=== PATIENT | female | born 1945 | race Caucasian/White ===

== ENCOUNTER → 2018-10-01 | Day surgery (SDC) | payer MEDICARE, OTHER ==
[2018-09-24 18:05] LABS: BASOPHILS # (AUTO) 0.1 (0.0-0.1); BASOPHILS % 0.4 % (0.0-1.0); EOSINOPHILS # (AUTO) 0.2 (0.0-0.4); EOSINOPHILS % 1.5 % (0.0-6.0); HEMATOCRIT 44.6 % (34.2-44.1); HEMOGLOBIN 14.4 g/dL (12.0-16.0); LYMPHOCYTES % 26.2 % (18.0-39.1); MEAN CORPUSCULAR HEMOGLOBIN 29.8 pg (28-32); MEAN CORPUSCULAR HGB CONC 32.3 g/dL (31-35); MEAN CORPUSCULAR VOLUME 92.1 fL (81-99); MONOCYTES # (AUTO) 1.1 (0.2-0.8); MONOCYTES % 9.4 % (4.4-11.3); NEUTROPHILS # (AUTO) 7.1 (2.1-6.9); NEUTROPHILS % 62.1 % (38.7-80.0); PLATELET COUNT 233 x10e3/uL (140-360); RED BLOOD COUNT 4.84 x10e6/uL (3.6-5.1); RED CELL DISTRIBUTION WIDTH 14.4 % (11.7-14.4)
[2018-09-24 18:21] LABS: ANION GAP 13.6 mmol/L (8-16); BLOOD UREA NITROGEN 14 mg/dL (7-26); BUN/CREATININE RATIO 18 (6-25); CALCIUM 10.6 mg/dL (8.4-10.2); CARBON DIOXIDE 33 mmol/L (22-29); CHLORIDE 97 mmol/L (98-107); CREATININE, SERUM 0.79 mg/dL (0.57-1.11); EST GLOMERULAR FILTRATION RATE > 60 ML/MIN (60-); GLUCOSE 79 mg/dL (74-118); POTASSIUM 4.6 mmol/L (3.5-5.1); SODIUM 139 mmol/L (136-145)
[~2018-10-01] MED LIST: ASPIRIN81 MG PO; ATENOLOL50 MG PO; BALANCED SALT SOLN (OPTH) 15 ML BTL IO ONE; BUPIVACAINE HC 0.75% PF 10ML VIAL INJ ONE; CALCIUM PO; CHONDR SU A NA/HYALUR SOD 1 EACH KIT IO ONE; CO Q-1010 MG PO; CYCLOPENTOLATE HCL 2% OPTH SOLN 2 ML BTL OP ONE; EPINEPHRINE HCL 1:1000 1ML 1 MG/ML AMP ONE; FAMOTIDINE20 MG PO; FENTANYL CITRATE/PF 100MCG/2 ML INJ ONE; GATIFLOXACIN(OPTH) 5 ML LIQD ONE; GLYCOPYRROLATE INJ 1MG/ 5 ML SYR ONE; LIDOCAINE 2% /EPINEPHRINE 20 ML SDV INJ ONE; LIDOCAINE HCL-PF 4% 40 MG/1 ML 5ML AMP ONE; LISINOPRIL-HCT1 EAC1 PO; MIDAZOLAM HCL 2 MG/2 ML VIAL ONE; PHENYLEPHRINE HCL 2 ML DROPS ONE; PILOCARPINE HCL(OPTH) 15 ML LIQD ONE; POVIDONE IODINE 5% (OPTH) 30 ML BTL ONE; SILVER CENTRUM PO; SIMVASTATIN20 MG PO; TOBRAMYCIN/DEXAMETHASONE(OPTH) 3.5 GM TUBE ONE; [UNRECOGNIZED DRUG - OTHER] PO
--- OUTSIDE RECORDS SUMMARY | 2018-10-01 05:27 | XMS REPORT | Clinical Summary ---
Author Author [facility] Address Unknown Phone Unavailable Care Team Providers Care Services Mgr Name Role Phone Asked, No Pcp PCP Unavailable Allergies Comments Active Allergy Reactions Severity Noted Date allegic for sulfur Other Medium 06/06/2016 Sulfadiazine 06/06/2016 Medications End Date Status Medication Sig Dispensed Refills Start Date Active lisinopril-hydrochlorothi Take 1 tablet 0 azide by mouth (PRINZIDE,ZESTORETIC) daily. 20-25 mg per tablet Active simvastatin (ZOCOR) 40 MG Take 40 mg by 0 tablet mouth daily. Active atenolol (TENORMIN) 25 MG Take 25 mg by 0 tablet mouth daily. Active aspirin (ECOTRIN) 81 MG Take 81 mg by 0 enteric coated tablet mouth daily. Active famotidine (PEPCID) 20 MG Take 20 mg by 0 tablet mouth 2 (two) times a day. Active coenzyme Q10 200 mg Take 200 mg 0 capsule by mouth daily. Active cholecalciferol, vitamin Take 1,000 0 D3, (VITAMIN D3) 1,000 Units by unit tablet mouth daily. Active CALCIUM CARBONATE Take 1,000 mg 0 (CALCIUM 500 ORAL) by mouth daily. Active qbxea-2l-vqc-epa-fish oil Take 1 0 1,000-1,400 mg capsule by capsule,delayed mouth daily. release(DR/EC) Active FOLIC Take 1 tablet 0 ACID/MULTIVIT-MIN/LUTEIN by mouth (CENTRUM SILVER ORAL) daily. Active Problems Not on file Family History Medical History Relation Name Comments Cancer Father Lung cancer Mother Leukemia Sister Relation Name Status Comments Father Mother Sister Social History Date Tobacco Use Types Packs/Day Years Used Never Smoker Alcohol Use Drinks/Week oz/Week Comments Yes 1 Glasses of 0.6 to 2 3 times a week wine Sex Assigned at Date Recorded Not on file Industry Job Start Date Occupation Not on file Not on file Not on file Travel End Travel History Travel Start No recent travel history available. Last Filed Vital Signs Not on file Plan of Treatment Not on file Results Not on fileafter 09/30/2017 Insurance Type Payer Benefit Subscriber ID Effective Phone Address Plan / Dates Group Medicare MEDICARE MEDICARE xxxxxxxxxx 2011- [place], PART A AND Present [place] [employer] COMMERCIAL MISC MISC xxxxxxxxx [id number] COMMERCIAL resent Advance Directives Patient has advance care planning documents on file. For more information, otf berry contact: Pranay Ward [address] [place] [address]
--- OUTSIDE RECORDS SUMMARY | 2018-10-01 05:28 | XMS REPORT ---
Author Author [facility] Address Unknown Phone Unavailable Care Team Providers Care Radiology Physician Assistant Name Role Phone Unavailable Unavailable Payers Payer Name Policy Type Policy Number Effective Date Expiration Date Problems This patient has no known problems. Allergies, Adverse Reactions, Alerts Allergy Name Allergy Type Status Severity Reaction(s) Onset Date Inactive Date Treating Clinician Comments Sulfa (Sulfonamide Antibiotics) DA Active [place] 2018-08-28 00:00:00 Sulfa (Sulfonamide Antibiotics) DA Active [place] 2017-09-22 00:00:00 Medications This patient has no known medications. Results Test Description Test Time Test Comments Text Results Atomic Results Result Comments - XR FLUORO NDL 2018-09-01 14:04:00 Patient Name: ESHA VIGIL Unit No: [id number] EXAMS: CPT CODE: [id number] XR FLUORO NDL 06208 FLUOROSCOPICALLY GUIDED left hip INTRA-ARTICULAR STEROID AND MARCAINE INJECTION COMMENT: After informed consent was obtained a 25-gauge needle is inserted into the left hip joint under fluoroscopic control using sterile technique. 1 mL of Isovue-300 is instilled into the joint. This is followed by injection of 2 mL of Kenalog 40 mg/mL and 4mL of Marcaine. The patient tolerated the procedure well. 0.5 minutes of fluoroscopy time was used on this exam. at 1404 Reported and signed by: Demetris Roper MD CC: Krystina Albright MD; Clem Felder MD Technologist: RT Cheryl.(R) Transcribed D/ (1407) AylinGVG [facility] NAME: ESHA VIGIL [address] [facility] PHYS: SENDYEMILY - Krystina Albright : 1945 AGE: 73 SEX: F [place] [address] LOC: Y.RAD PHONE #: [phone] EXAM DATE: 08/28/2018 STATUS: DEP CLI FAX #: [phone] RAD #: D/C DT PAGE 1 Signed Report Patient Name: ESHA VIGIL Unit No: [id number] EXAMS: CPT CODE: [id number] XR FLUORO NDL 28301 <Continued> Orig Print D/T: S: 09/01/2018 ([id number]) [facility] NAME: ESHA VIGIL [address] [facility] PHYS: GOEMILY - Krystina Albright : 1945 AGE: 73 SEX: F [place] [address] LOC: Y.RAD PHONE #: [phone] EXAM DATE: 08/28/2018 STATUS: DEP CLI FAX #: [phone] RAD #: D/C DT PAGE 2 Signed Report
--- OUTSIDE RECORDS SUMMARY | 2018-10-01 05:28 | XMS REPORT | Encounter Summary ---
Author Organization Unknown Address [address] [place] [address] Phone [phone] Care Team Providers Care Obgyn Hospitalist Physician Name Role Phone Dr. Stanley Forbes 3 [phone] Clem LUJAN MD 82 [phone] Osbaldo Gonzalez MD 107 [phone] Herminio Diaz MD 111 [phone] Reason for Visit sore throat; cough / congestion Instructions 1. Hypertensive disorder 2. Acute exacerbation of asthma dexamethasone 4 mg/mL injection solution triamcinolone acetonide 40 mg/mL suspension for injection Ventolin HFA 90 mcg/actuation aerosol inhaler azithromycin 250 mg tablet 3. Seasonal allergic rhinitis fluticasone propionate 50 mcg/actuation nasal spray,suspension loratadine 10 mg tablet Singulair 10 mg tablet Discussion Note f/u in 1-2 mth swith pcp , due to vaccines & labs Patient educational handouts: No information available. Plan of Care Reminders Provider Appointments None recorded. Lab None recorded. Referral None recorded. Procedures None recorded. Surgeries None recorded. Imaging None recorded. Medications Name Start Date atenolol 25 mg tablet Take 1 tablet every day by oral route for 90 days. azithromycin 250 mg tablet TAKE 2 TABLETS (500 MG) BY ORAL ROUTE ONCE DAILY FOR 1 DAY THEN 1 TABLET (250 MG) BY ORAL ROUTE ONCE DAILY FOR 4 DAYS Calcium 500 take one tablet by mouth once a day Co Q-10 200 mg capsule Take 1 capsule every day by oral route. dexamethasone 4 mg/mL injection solution Take 4 mg by injection route for 1 day. famotidine 20 mg tablet Take 1 tablet every day by oral route for 30 days. fluticasone propionate 50 mcg/actuation nasal spray,suspension Staples 1 spray twice a day by intranasal route for 90 days. lisinopril 20 mg-hydrochlorothiazide 25 mg tablet Take 1 tablet every day by oral route for 90 days. loratadine 10 mg tablet Take 1 tablet every day by oral route for 90 days. Lumigan 0.01 % eye drops Apply 1 drop every day by ophthalmic route as directed for 30 days. SB Low Dose ASA EC 81 mg tablet,delayed release Take 1 tablet every day by oral route. simvastatin 40 mg tablet Take 1 tablet every day by oral route for 90 days. Singulair 10 mg tablet Take 1 tablet every day by oral route in the evening for 90 days. triamcinolone acetonide 40 mg/mL suspension for injection Take 40 mg by injection route for 1 day. Vascepa 1 gram capsule Take 2 capsules twice a day by oral route for 90 days. Ventolin HFA 90 mcg/actuation aerosol inhaler Inhale 2 puffs 3 times a day by inhalation route as needed for 30 days. Vitamin D3 1,000 unit tablet Take 1 tablet every day by oral route. Medications Administered Name Date dexamethasone 4 mg/mL injection solution Take 4 mg by injection route for 1 day. [id number]:57:00 triamcinolone acetonide 40 mg/mL suspension for injection Take 40 mg by injection route for 1 day. [id number]:58:00 Vitals Height Weight BMI Blood Pressure 5 ft 6 in 154 lbs 24.9 kg/m2 128/82 mm[Hg] Lab Results None recorded. 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 Social History Smoking Status Never Smoker Past Encounters 05/20/2018 Hypertensive Disorder; Acute Exacerbation of Asthma; Seasonal Allergic Rhinitis Adwoa Reed MD: [address] [place] [address], Ph. History of Present Illness Note:Here ebcause she has a wheeze , starte dwith cough & burning when she coughs in her chest , blowing her nose & it fills right back up ., low garde fever yesterday & 100.2 today . took 2 tylenols this am,, h/o seasonal allergies - no meds taken . took zyrtec 1 week ago . Review of Systems:ROS as noted in the HPI Review of Systems None recorded. Physical Exam General Adult Exam (Female) Reported By: Patient Constitutional: General Appearance: well-developed; BMI - 24.9. Level of Distress: mild distress. Ambulation: ambulating normally Psychiatric: Mental Status: active and alert, normal mood, normal affect. Orientation: to time, to place, to person Head: Head: normocephalic, atraumatic Eyes: Lids and Conjunctivae: non-injected, no discharge, no pallor; ALLERgic shiners under both eyes. Pupils: PERRLA. Corneas: grossly intact. EOM: EOMI. Lens: clear. Sclerae: non-icteric ENMT: Ears: no lesions on external ear, EACs clear, TM bulging. Hearing: no hearing loss. Nose: no lesions on external nose, nares patent, no septal deviation, nasal passages clear, no sinus tenderness, no nasal discharge. Lips, Teeth, and Gums: no mouth or lip ulcers, no bleeding gums, normal dentition. Oropharynx: moist mucous membranes, no erythema, no exudates, tonsils not enlarged; cobblestone pattern in posterior pharygeal wall Neck: Neck: supple, trachea midline, no masses, FROM. Lymph Nodes: no cervical LAD, no supraclavicular LAD, no axillary LAD. Thyroid: no enlargement, non- tender, no nodules Lungs: Respiratory effort: no dyspnea. Auscultation: breath sounds normal, good air movement, CTA except as noted, no wheezing, no rales/crackles, no rhonchi Cardiovascular: Heart Auscultation: RRR, normal S1, normal S2, no murmurs, no rubs, no gallops Abdomen: Bowel Sounds: normal. Inspection and Palpation: soft, non-distended, no tenderness, no guarding, no rebound tenderness, no masses, no CVA tenderness. Liver: non-tender, no hepatomegaly Musculoskeletal:: Motor Strength and Tone: normal motor strength, normal tone. Joints, Bones, and Muscles: normal movement of all extremities, no bony abnormalities, no contractures, no malalignment, no tenderness. Extremities: no cyanosis, no edema, no varicosities Neurologic: Gait and Station: normal gait, normal station. Cranial Nerves: grossly intact. Sensation: grossly intact Skin: Inspection and palpation: no rash, no lesions, no abnormal nevi, good turgor, no jaundice. Nails: normal Back: Thoracolumbar Appearance: normal curvature
--- OUTSIDE RECORDS SUMMARY | 2018-10-01 05:28 | XMS REPORT | Encounter Summary ---
Author Organization Unknown Address [address] [place] [address] Phone [phone] Care Team Providers Care Desk Attendant Name Role Phone Dr. Stanley Forbes 3 [phone] Clem LUJAN MD 82 [phone] Osbaldo Gonzalez MD 107 [phone] Herminio Diaz MD 111 [phone] Reason for Visit cough / congestion Instructions 1. Acute sinusitis ceftriaxone 1 gram solution for injection Levaquin 500 mg tablet Cheratussin AC 10 mg-100 mg/5 mL oral liquid 2. Exacerbation of asthma Medrol (Deepak) 4 mg tablets in a dose pack 3. Immunization refused 4. Body mass index 20-24 - normal Discussion Note: None recorded. Patient educational handouts: No information available. Plan of Care Reminders Provider Appointments None recorded. Lab None recorded. Referral None recorded. Procedures None recorded. Surgeries None recorded. Imaging None recorded. Medications Name Start Date atenolol 25 mg tablet Take 1 tablet every day by oral route for 90 days. Calcium 500 take one tablet by mouth once a day ceftriaxone 1 gram solution for injection Take 1 g by injection route. Cheratussin AC 10 mg-100 mg/5 mL oral liquid Take 10 mL every 6-8 hours by oral route as needed for 5 days. Co Q-10 200 mg capsule Take 1 capsule every day by oral route. famotidine 20 mg tablet Take 1 tablet every day by oral route for 30 days. fluticasone propionate 50 mcg/actuation nasal spray,suspension Hudson 1 spray twice a day by intranasal route for 90 days. Levaquin 500 mg tablet Take 1 tablet every 24 hours by oral route as directed for 7 days. lisinopril 20 mg-hydrochlorothiazide 25 mg tablet Take 1 tablet every day by oral route for 90 days. Lumigan 0.01 % eye drops Apply 1 drop every day by ophthalmic route as directed for 30 days. Medrol (Deepak) 4 mg tablets in a dose pack as directed montelukast 10 mg tablet Take 1 tablet every day by oral route in the evening for 90 days. SB Low Dose ASA EC 81 mg tablet,delayed release Take 1 tablet every day by oral route. simvastatin 40 mg tablet Take 1 tablet every day by oral route for 90 days. Vascepa 1 gram capsule Take 2 capsules twice a day by oral route for 90 days. Ventolin HFA 90 mcg/actuation aerosol inhaler Inhale 2 puffs 3 times a day by inhalation route as needed for 30 days. Vitamin D3 1,000 unit tablet Take 1 tablet every day by oral route. Medications Administered Name Date ceftriaxone 1 gram solution for injection Take 1 g by injection route. [id number]:05:00 Vitals Height Weight BMI Blood Pressure 5 ft 6 in 151 lbs 24.4 kg/m2 130/80 mm[Hg] Lab Results None recorded. Allergies Code [...] History Smoking Status Never Smoker Past Encounters 05/28/2018 Acute Sinusitis; Exacerbation of Asthma; Immunization Refused; Body Mass Index 20-24 - Normal Stanley Chandra MD: [address] [place] [address], Ph. 05/20/2018 Hypertensive Disorder; Acute Exacerbation of Asthma; Seasonal Allergic Rhinitis Adwoa Reed MD: [address] [place] [address], Ph. History of Present Illness Note:F/u on asthma exacerbation and allergic rhinitis. Pt completed a zpak. However, she is still complaining of productive cough, runny nose and nasal congestion. Denies sob, wheezing or chest pain. Review of Systems:ROS as noted in the HPI Review of Systems None recorded. Physical Exam General Adult Exam (male) Reported By: Patient Constitutional: General Appearance: healthy-appearing. Level of Distress: NAD Psychiatric: Insight: good judgement. Mental Status: active and alert, normal mood, normal affect. Orientation: to time, to place, to person. Memory: recent memory normal, remote memory normal Eyes: Lids and Conjunctivae: non-injected, no discharge. EOM: EOMI ENMT: Ears: TMs clear. Nose: nares non-patent, sinus tenderness, nasal discharge, post nasal drip. Lips, Teeth, and Gums: no mouth or lip ulcers. Oropharynx: moist mucous membranes, no exudates, tonsils not enlarged, erythema Neck: Neck: supple, trachea midline. Lymph Nodes: cervical LAD Lungs: Auscultation: breath sounds normal Cardiovascular: Heart Auscultation: RRR, normal S1, normal S2, no murmurs Neurologic: Gait and Station: normal gait
[2018-10-01 08:15] VITALS: BP 146/80
== END | disposition home or self-care (01) ==
LOC: OR 05:00
PROVIDERS: ATTEND Ophthalmology
DX: H25.11 Age-related nuclear cataract, right eye (principal); I10 Essential (primary) hypertension; J45.909 Unspecified asthma, uncomplicated; I25.810 Atherosclerosis of coronary artery bypass graft(s) without angina pectoris; R00.1 Bradycardia, unspecified; Z88.2 Allergy status to sulfonamides; Z01.810 Encounter for preprocedural cardiovascular examination; Z01.812 Encounter for preprocedural laboratory examination; Z79.82 Long term (current) use of aspirin; Z95.1 Presence of aortocoronary bypass graft
CPT/HCPCS: 36415; 66982; 80048; 85025; 93005; J0171; J2001; J2250; J3010; J3490; V2632

== ENCOUNTER → 2020-07-27 | Day surgery (SDC) | payer MEDICARE, OTHER ==
[~2020-07-27] MED LIST changes: -CHONDR SU A NA/HYALUR SOD 1 EACH KIT IO ONE; -GLYCOPYRROLATE INJ 1MG/ 5 ML SYR ONE; +LUMIGAN2.5 M1 OP; +POVIDONE IODINE 0.05% 0.05 % ML PO ONE; +PROPOFOL IV EMULSION 10 MG/ML 20 ML VIAL ONE; +VASCEPA1 GM PO
[2020-07-27 10:48] VITALS: BP 128/67
== END | disposition home or self-care (01) ==
LOC: OR 07:00
PROVIDERS: ATTEND Ophthalmology
DX: H25.12 Age-related nuclear cataract, left eye (principal); I10 Essential (primary) hypertension; I45.10 Unspecified right bundle-branch block; J45.909 Unspecified asthma, uncomplicated; K21.9 Gastro-esophageal reflux disease without esophagitis; Z88.2 Allergy status to sulfonamides; Z01.812 Encounter for preprocedural laboratory examination; Z20.822 Contact with and (suspected) exposure to COVID-19; Z79.82 Long term (current) use of aspirin; Z95.1 Presence of aortocoronary bypass graft
CPT/HCPCS: 66984; J0171; J2001; J2250; J2704; J3010; U0002; V2632

== ENCOUNTER 2020-11-26 00:33 | Emergency (ER) | payer MEDICARE, OTHER ==
[~2020-11-26] VITALS: Ht 170.2 cm; Wt 65.3 kg
[~2020-11-26 00:33] MED LIST changes: -BALANCED SALT SOLN (OPTH) 15 ML BTL IO ONE; -BUPIVACAINE HC 0.75% PF 10ML VIAL INJ ONE; -CYCLOPENTOLATE HCL 2% OPTH SOLN 2 ML BTL OP ONE; -EPINEPHRINE HCL 1:1000 1ML 1 MG/ML AMP ONE; -FENTANYL CITRATE/PF 100MCG/2 ML INJ ONE; -GATIFLOXACIN(OPTH) 5 ML LIQD ONE; -LIDOCAINE 2% /EPINEPHRINE 20 ML SDV INJ ONE; -LIDOCAINE HCL-PF 4% 40 MG/1 ML 5ML AMP ONE; -MIDAZOLAM HCL 2 MG/2 ML VIAL ONE; -PHENYLEPHRINE HCL 2 ML DROPS ONE; -PILOCARPINE HCL(OPTH) 15 ML LIQD ONE; -POVIDONE IODINE 0.05% 0.05 % ML PO ONE; -POVIDONE IODINE 5% (OPTH) 30 ML BTL ONE; -PROPOFOL IV EMULSION 10 MG/ML 20 ML VIAL ONE; -TOBRAMYCIN/DEXAMETHASONE(OPTH) 3.5 GM TUBE ONE
[2020-11-26] MEDS ORDERED: SODIUM CHLORIDE 0.9% 1000ML 1,000 ML IV STA (00:44)
[2020-11-26] MEDS ORDERED: ASPIRIN 81 MG CHEW TAB PO ONE (00:45)
[2020-11-26] MEDS ORDERED: ACETAMINOPHEN 325 MG TAB PO ONE (00:45)
[2020-11-26] MEDS ORDERED: METOPROLOL TARTRATE INJ 1 MG/ML VIAL IV SCH (00:45)
[2020-11-26] MEDS ORDERED: FAMOTIDINE 20 MG/2 ML VIAL IV ONE ×2 (00:45→01:32)
[2020-11-26] MEDS ORDERED: ONDANSETRON HCL INJ 2MG/ML 2ML 2 MG/ML VIAL IV PRN (01:15)
[2020-11-26] MEDS ORDERED: FAMOTIDINE 20 MG TAB PO SCH (01:15)
[2020-11-26] MEDS ORDERED: NITROGLYCERIN 0.4 MG SUBL SL PRN (01:15)
[2020-11-26] MEDS ORDERED: SODIUM CHLORIDE FLUSH 10 ML SYR INJ PRN (01:15)
[2020-11-26] MEDS ORDERED: ENOXAPARIN SODIUM INJ 100 MG/ML SYR SC SCH (01:15)
[2020-11-26] MEDS ORDERED: METOPROLOL TARTRATE 25 MG TAB PO SCH (01:15)
[2020-11-26] MEDS ORDERED: SODIUM CHLORIDE 0.9% 500ML 500 ML ONE (01:32)
[2020-11-26] MEDS ORDERED: ASPIRIN 325 MG TAB ONE (01:32)
[2020-11-26] MEDS ORDERED: ENOXAPARIN SOD INJ 60 MG/0.6 ML SYR SC ONE (02:00)
[2020-11-26] MEDS ORDERED: ENOXAPARIN SODIUM INJ 100 MG/ML SYR SC ONE ×2 (02:00→03:52)
[2020-11-26] MEDS ORDERED: ASPIRIN 325 MG TAB EC PO SCH (09:00)
[2020-11-26] MEDS ORDERED: SIMVASTATIN 40 MG TAB PO SCH (21:00)
== END 2020-11-26 04:25 | disposition other institution (70) ==
LOC: FSED 00:44 → UNDOADMOB 01:03 → ERHOLD 01:03 → FSED 04:25
DX: R00.2 Palpitations (principal); I48.91 Unspecified atrial fibrillation; I24.9 Acute ischemic heart disease, unspecified; I10 Essential (primary) hypertension; I25.10 Atherosclerotic heart disease of native coronary artery without angina pectoris; Z95.1 Presence of aortocoronary bypass graft; R94.31 Abnormal electrocardiogram [ECG] [EKG]
CPT/HCPCS: 71046; 80053; 82553; 84484; 85025; 93005; 99284; J1650; J7040; U0002